=== PATIENT | female | born 1975 | race American Indian/Alaskan Native ===

== ENCOUNTER 2018-01-07 15:01 | Emergency (ER) | payer MEDICAID ==
[2018-01-07 15:29] VITALS: BP 135/75
[2018-01-07 16:34] LABS: Bilirubin,Urine NEG (Negative); Blood,Urine NEG (Negative); Calcium Oxalate Crystals,Urine 3+; Color,Urine Yellow (Yellow); Mucus,Urine 3+ /HPF
[2018-01-07 16:35] LABS: HCG Qualitative,Urine Negative (Negative)
[2018-01-07] MEDS ORDERED: TORADOL IM ONE (17:40)
--- NOTE | 2018-01-07 17:43 | Emergency Department Report ---
ED Female HPI - General Chief complaint: Abdominal Pain Stated complaint: ABDOMINAL PAIN Time Seen by Provider: 01/07/18 17:19 Source: patient Mode of arrival: Ambulatory Limitations: No Limitations - History of Present Illness MD Complaint: dysuria, pelvic pain -: Last night Severity: moderate Quality: sharp Improves with: movement Worsens with: none Are you Now?: No Associated Symptoms: denies other symptoms, dysuria - Related Data Allergies Allergy/AdvReac Type Severity Reaction Status Date / Time No Known Allergies Allergy Unverified 01/07/18 15:29 ED Review of Systems ROS: Stated complaint: ABDOMINAL PAIN Other details as noted in HPI Comment: All other systems reviewed and negative Constitutional: denies: chills, fever Respiratory: denies: cough, orthopnea, shortness of breath, SOB with exertion, SOB at rest Cardiovascular: denies: palpitations Gastrointestinal: abdominal pain. denies: nausea, vomiting, diarrhea, constipation, melena, hematochezia Musculoskeletal: denies: back pain Neurological: denies: weakness ED Past Medical Hx - Past Medical History Previous Medical History?: No - Surgical History Past Surgical History?: No - Social History Smoking Status: Current Every Day Smoker Substance Use Type: None ED Physical Exam - General Limitations: No Limitations General appearance: alert, in no apparent distress - Head Head exam: Present: atraumatic, normocephalic, normal inspection - Eye Eye exam: Present: normal appearance - ENT ENT exam: Present: normal exam - Neck Neck exam: Present: normal inspection, full ROM. Absent: tenderness, meningismus - Respiratory Respiratory exam: Present: normal lung sounds bilaterally - Cardiovascular Cardiovascular Exam: Present: regular rate, normal rhythm, normal heart sounds - GI/Abdominal GI/Abdominal exam: Present: soft, normal bowel sounds. Absent: distended, tenderness, guarding, rebound, rigid - Extremities Exam Extremities exam: Present: normal inspection, full ROM, normal capillary refill - Back Exam Back exam: Present: normal inspection, full ROM - Neurological Exam Neurological exam: Present: alert, oriented X3, CN II-XII intact, normal gait, reflexes normal - Skin Skin exam: Present: warm, intact, normal color ED Course Vital Signs 01/07/18 15:27 Temperature 98.8 F Pulse Rate 95 H Respiratory 16 Rate Blood Pressure 135/75 O2 Sat by Pulse 100 Oximetry Critical care attestation.: If time is entered above; I have spent that time in minutes in the direct care of this critically ill patient, excluding procedure time. ED Disposition Clinical Impression: Dysuria Disposition: DC-01 TO HOME OR SELFCARE Is pt being admited?: No Condition: Stable Instructions: Abdominal Pain (ED), Dysuria (ED) Referrals: PRIMARY CARE, [Primary Care Provider] - 3-5 Days
== END 2018-01-07 18:10 | disposition home or self-care (01) ==
LOC: ED 15:01
DX: R30.0 Dysuria (principal); F17.200 Nicotine dependence, unspecified, uncomplicated
CPT/HCPCS: 81001; 81025; 96372; 99283; J1885

== ENCOUNTER 2020-01-03 00:35 | Emergency (ER) | payer MEDICAID ==
[2020-01-03] MEDS ORDERED: dexAMETHasone 20 MG/5 ML VIAL IM ONE (03:24)
[2020-01-03] MEDS ORDERED: ACETAMINOPHEN 500 MG TAB PO ONE (03:24)
[2020-01-03] MEDS ORDERED: KETOROLAC 60 MG/2 ML INJ IM ONE (03:24)
[2020-01-03 03:55] VITALS: BP 120/79
--- NOTE | 2020-01-03 03:58 | Emergency Department Report ---
ED Extremity Problem HPI - General Chief complaint: Extremity Injury, Lower Stated complaint: RT KNEE INJURY Source: patient Mode of arrival: Ambulatory Limitations: No Limitations - History of Present Illness Initial comments: Patient is a 44-year-old -[place] female with history of chronic right knee pain due to osteoarthritis from an old surgical procedure on the right knee and who presents to the ED with complaint of acute exacerbation of her chronic right knee for the last 1 week, worse in the last 2 days. Patient states that the pain is worse with ambulation, rest or when she wakes up in the morning. Patient states that she has been taking [id number] medication with no relief. Patient denies fall, traumatic injury, heavy lifting, fever, chills, na usea, vomiting, headache, dizziness, syncope, low back pain or hip pain, numbness and tingling or weakness of right leg. MD Complaint: extremity pain (RIGHT KNEE), extremity swelling (Right knee), joint swelling (right knee), joint paint (right knee) -: Gradual, year(s) (2) Location: right, knee History of Same: Yes (Chronic right knee pain) -: Yes arthralgia (right knee) Radiation: none Severity scale (0 -10): 8 Quality: aching, sharp Consistency: constant Improves with: nothing Worsens with: weight bearing, walking, exertion, palpation Associated Symptoms: denies other symptoms, arthralgias (right knee). denies: chest pain, shortness of breath, fever, myalgias - Related Data Previous Rx's Medication Instructions Recorded Last Taken Type Ciprofloxacin HCl [Ciprofloxacin 500 mg PO Q12H #14 tab 01/07/18 Unknown Rx TAB] Ondansetron [Zofran Odt] 4 mg PO Q8HR PRN #14 tab.rapdis 01/07/18 Unknown Rx traMADoL [Ultram] 50 mg PO Q6HR PRN #14 tablet 01/07/18 Unknown Rx Diclofenac Potassium 50 mg PO Q8H PRN #30 tablet 01/03/20 Unknown Rx predniSONE [Deltasone] 60 mg PO QDAY #18 tab 01/03/20 Unknown Rx traMADoL [Ultram] 50 mg PO Q6HR PRN #12 tablet 01/03/20 Unknown Rx Allergies Allergy/AdvReac Type Severity Reaction Status Date / Time No Known Allergies Allergy Unverified 01/07/18 15:29 ED Review of Systems ROS: Stated complaint: RT KNEE INJURY Other details as noted in HPI Constitutional: denies: chills, fever Eyes: denies: eye pain, eye discharge, vision change ENT: denies: ear pain, throat pain Respiratory: denies: cough, shortness of breath, wheezing Cardiovascular: denies: chest pain, palpitations Endocrine: no symptoms reported Gastrointestinal: denies: abdominal pain, nausea, diarrhea Genitourinary: denies: urgency, dysuria, discharge Musculoskeletal: joint swelling (right knee), myalgia. denies: arthralgia (right knee ) Skin: denies: rash, lesions Neurological: denies: headache, weakness, paresthesias Psychiatric: denies: anxiety, depression Hematological/Lymphatic: denies: easy bleeding, easy bruising ED Past Medical Hx - Past Medical History Previous Medical History?: No - Surgical History Past Surgical History?: Yes Additional Surgical History: R knee sx 2009 - Social History Smoking Status: Current Every Day Smoker - Medications Home Medications: Home Medications Medication Instructions Recorded Confirmed Last Taken Type Ciprofloxacin HCl [Ciprofloxacin 500 mg PO Q12H #14 tab 01/07/18 Unknown Rx TAB] Ondansetron [Zofran Odt] 4 mg PO Q8HR PRN #14 tab.rapdis 01/07/18 Unknown Rx traMADoL [Ultram] 50 mg PO Q6HR PRN #14 tablet 01/07/18 Unknown Rx Diclofenac Potassium 50 mg PO Q8H PRN #30 tablet 01/03/20 Unknown Rx predniSONE [Deltasone] 60 mg PO QDAY #18 tab 01/03/20 Unknown Rx traMADoL [Ultram] 50 mg PO Q6HR PRN #12 tablet 01/03/20 Unknown Rx ED Physical Exam - General Limitations: No Limitations General appearance: alert, in no apparent distress - Head Head exam: Present: atraumatic, normocephalic, normal inspection - Eye Eye exam: Present: normal appearance, PERRL, EOMI - ENT ENT exam: Present: normal exam, normal orophraynx, mucous membranes moist, TM's normal bilaterally, normal external ear exam - Neck Neck exam: Present: normal inspection, full ROM - Respiratory Respiratory exam: Present: normal lung sounds bilaterally. Absent: respiratory distress, wheezes, rales, rhonchi, chest wall tenderness, accessory muscle use, decreased breath sounds, prolonged expiratory - Cardiovascular Cardiovascular Exam: Present: regular rate, normal rhythm, normal heart sounds. Absent: systolic murmur, diastolic murmur, rubs, gallop - GI/Abdominal GI/Abdominal exam: Present: soft, normal bowel sounds. Absent: tenderness, guarding, rebound, hyperactive bowel sounds, hypoactive bowel sounds, organomegaly - Extremities Exam Extremities exam: Present: normal inspection, full ROM, tenderness (Palpable right knee tenderness), normal capillary refill, joint swelling (Mild right knee swelling) - Back Exam Back exam: Present: normal inspection, full ROM. Absent: tenderness, CVA tenderness (R), CVA tenderness (L), muscle spasm, paraspinal tenderness, vertebral tenderness - Neurological Exam Neurological exam: Present: alert, oriented X3, CN II-XII intact, normal gait, reflexes normal - Psychiatric Psychiatric exam: Present: normal affect, normal mood - Skin Skin exam: Present: warm, dry, intact, normal color. Absent: rash ED Course Vital Signs 01/03/20 01/03/20 01:18 04:20 Temperature 99.2 F Pulse Rate 124 H 89 Respiratory 18 17 Rate Blood Pressure 120/79 O2 Sat by Pulse 98 99 Oximetry ED Medical Decision Making - Medical Decision Making This is a 44-year-old -[place] female with history of chronic right knee pain due to osteoarthritis from an old surgical procedure on the right knee and who presents to the ED with complaint of acute exacerbation of her chronic right knee for the last 1 week, worse in the last 2 days. Patient states that the pain is worse with ambulation, rest or when she wakes up in the morning. Patient states that she has been taking [id number] medication with no relief. In the ED, patient is alert and oriented x3 and is not in distress. Patient was treated for pain in the ED and on reevaluation, patient's pain is well controlled medication. Patient will discharge home on pain medications and advised to follow-up with her primary care physician in 5 to 7 days for reevaluation or return to the ED immediately if symptoms get worse. - Differential Diagnosis chronic pain; chronic osteoarthritis; muscle strain of right knee Critical care attestation.: If time is entered above; I have spent that time in minutes in the direct care of this critically ill patient, excluding procedure time. ED Disposition Clinical Impression: Chronic osteoarthritis, Chronic pain of right knee Disposition: DC-01 TO HOME OR SELFCARE Is pt being admited?: No Does the pt Need Aspirin: No Condition: Stable Instructions: Osteoarthritis (ED), Chronic Pain (ED), Arthralgia (ED) Additional Instructions: Take medication with food, drink plenty of fluids and follow-up with your primary care physician in 7 to 10 days for reevaluation. Return to the ED immediately if symptoms get worse. Prescriptions: predniSONE [Deltasone] 60 mg PO QDAY #18 tab Diclofenac Potassium 50 mg PO Q8H PRN #30 tablet PRN Reason: Pain , Severe (7-10) traMADoL [Ultram] 50 mg PO Q6HR PRN #12 tablet PRN Reason: Pain Referrals: [facility] [Provider Group] - 7-10 days Forms: Work/School Release Form(ED) Time of Disposition: 03:56 Print Language: MOLDOVAN
== END 2020-01-03 04:20 | disposition home or self-care (01) ==
LOC: ED 00:35
DX: M17.11 Unilateral primary osteoarthritis, right knee (principal); G89.29 Other chronic pain; F17.200 Nicotine dependence, unspecified, uncomplicated; Z79.899 Other long term (current) drug therapy
CPT/HCPCS: 96372; 99282; J1100; J1885